=== PATIENT | male | born 1980 | race Caucasian/White ===

== ENCOUNTER 2021-03-11 08:27 | Emergency (ER) | payer MEDICAID ==
[2021-03-11] MEDS ORDERED: Amoxicillin/Clavulanate K 875-125 MG Tab ONE (08:45)
[2021-03-11] MEDS ORDERED: Ketorolac 60 MG/2 ML SDV IM ONE (09:05)
== END 2021-03-11 09:00 | disposition home or self-care (01) ==
LOC: LB.ED 08:27
DX: K02.9 Dental caries, unspecified (principal); Z72.0 Tobacco use
CPT/HCPCS: 96372; 99282; A9270-GY; J1885

== ENCOUNTER 2021-06-04 08:52 | Emergency (ER) | payer MEDICAID ==
[2021-06-04] MEDS: Ketorolac 60 MG/2 ML SDV IM ONE (09:27)
[2021-06-04] MEDS: Ketorolac 60 MG/2 ML SDV ONE (09:28)
== END 2021-06-04 09:46 | disposition home or self-care (01) ==
LOC: LB.ED 08:52
DX: M54.50 Low back pain, unspecified (principal)
CPT/HCPCS: 96372; 99283; J1885

== ENCOUNTER 2023-03-17 15:01 | Emergency (ER) | payer SELFPAY ==
[2023-03-17] MEDS ORDERED: Erythromycin Base 0.5% Ophth Oint 3.5 GM Tube ONE (17:00)
== END 2023-03-17 17:40 | disposition home or self-care (01) ==
LOC: LB.ED 15:01
DX: T26.42XA Burn of left eye and adnexa, part unspecified, initial encounter (principal); Z79.899 Other long term (current) drug therapy; X11.0XXA Contact with hot water in bath or tub, initial encounter
CPT/HCPCS: 99283; A9270-GY